=== PATIENT | female | born 1960 | race Caucasian/White ===

== ENCOUNTER 2020-11-25 14:59 | Outpatient (CLI) | payer OTHER, SELFPAY ==
--- NOTE | 2020-11-25 15:11 | USCV_ITS ---
Aleida Kumar Age: 60 Gender: F : 1960 Exam Date: 11/25/2020 15:22 Ordering Phys: Alexa Shelton [employer] XX Technologist: Pee Borja Exam Location: [facility] [place] Indication: MURMUR BP: 134 / HR: 75 Rhythm: Sinus Technical Quality: Fair MEASUREMENTS (Male / Female) Normal Values 2D ECHO LV Diastolic Diameter PLAX 4.4 cm 4.2 - 5.9 / 3.9 - 5.3 cm LV Systolic Diameter PLAX 3.0 cm IVS Diastolic Thickness 1.1 cm 0.6 - 1.0 / 0.6 - 0.9 cm IVS Systolic Thickness 1.1 cm LVPW Diastolic Thickness 0.8 cm 0.6 - 1.0 / 0.6 - 0.9 cm LVPW Systolic Thickness 1.3 cm LVOT Diameter 2.5 cm LV Ejection Fraction 2D Teich 58.7 % LV Ejection Fraction MOD 2C 52.0 % LV Ejection Fraction 2C AL 51.2 % LA Diameter 3.6 cm LA Width 3.8 cm LA Height 4.8 cm RA Width 3.0 cm RA Height 5.0 cm Aorta at Sinotubular Diameter 2.2 cm DOPPLER AV Peak Velocity 277.3 cm/s LVOT Peak Velocity 106.0 cm/s AV Area Cont Eq vti 2.0 cm squared AV Area Cont Eq pk 1.8 cm squared MV Area PHT 5.0 cm squared Mitral E to A Ratio 1.1 MV E' Velocity 51.5 cm/s Mitral E to MV E' Ratio 10.3 Mitral E to LV E' Lateral Ratio 9.6 Mitral E to LV E' Septal Ratio 11.3 TR Peak Velocity 200.3 cm/s TR Peak Gradient 16.1 mmHg TV Peak E Velocity 84.0 cm/s Right Atrial Pressure 3.0 mmHg Pulmonary Artery Systolic Pressu 19.1 mmHg PV Peak Velocity 152.0 cm/s FINDINGS Left Ventricle Normal left ventricular size and systolic function, with no regional wall motion abnormalities. Left ventricular ejection fraction is estimated at 65 -70 %. Normal diastolic function. Right Ventricle Normal right ventricular size and systolic function. Right ventricular systolic pressure 22 mmHg. Right Atrium Normal right atrial size. Left Atrium Normal left atrial size. Mitral Valve Structurally normal mitral valve. No mitral valve stenosis. Trace mitral valve regurgitation. Aortic Valve Aortic valve not well visualized. Thickened and calcified aortic valve. Mild aortic valve stenosis, peak velocity 2.9 m/s, peak gradient 33 mmHg, mean gradient 15 mmHg, PREETI 1.9 cm squared. No aortic valve regurgitation. Tricuspid Valve Structurally normal tricuspid valve. Pulmonic Valve Pulmonic valve not well visualized. Pericardium No pericardial effusion. Aorta Aorta not well visualized. CONCLUSIONS 1. Normal left ventricular size, systolic function and wall thickness, with no regional wall motion abnormalities. Left ventricular ejection fraction is estimated at 65 -70 %. Normal diastolic function. 2. Normal right ventricular size and systolic function. 3. Pulmonary pressure estimated at 22 mmHg. 4. Thickened and calcified aortic valve. Mild aortic valve stenosis, peak velocity 2.9 m/s, peak gradient 33 mmHg, mean gradient 15 mmHg, PREETI 1.9 cm squared. 5. No prior similar studies to compare. Kathie Merlos MD (Electronically Signed) Final Date: 25 November 2020 17:12 S
== END 2020-11-25 15:00 | disposition home or self-care (01) ==
PROVIDERS: PCP Nurse Practitioner Family; Visit Provider Nurse Practitioner Family
DX: E78.5 Hyperlipidemia, unspecified (principal); R01.1 Cardiac murmur, unspecified; E66.9 Obesity, unspecified; I10 Essential (primary) hypertension; I35.8 Other nonrheumatic aortic valve disorders
CPT/HCPCS: 93306